=== PATIENT | male | born 1955 | race Caucasian/White ===

== ENCOUNTER → 2021-01-09 | Outpatient (CLI) | payer BC ==
[~2021-01-09] MED LIST: ZESTRIL5 MG PO
== END ==
LOC: KOH-I 11:36
DX: M54.5 Low back pain (principal); M51.36 Other intervertebral disc degeneration, lumbar region
CPT/HCPCS: 72100

== ENCOUNTER 2021-12-25 10:30 | Emergency (ER) | payer BC ==
[2021-12-25 11:27] LABS: HEMOGLOBIN 15.2 gm/dl (14.0-17.5); RED BLOOD COUNT 4.93 M/UL (4.20-5.50); WHITE BLOOD COUNT 5.7 K/UL (4.5-11.0)
[2021-12-25] MEDS ORDERED: CYCLOBENZAPRINE10 MG PO (13:06)
== END 2021-12-25 13:25 | disposition home or self-care (01) ==
LOC: ER1 10:30
PROVIDERS: Nurse Practitioner
DX: R07.89 Other chest pain (principal); I10 Essential (primary) hypertension
CPT/HCPCS: 70450; 71250; 72125; 80053; 81001; 82550; 82553; 84484; 85025; 93005; 99285

== ENCOUNTER → 2021-12-31 | Outpatient (CLI) | payer BC ==
[~2021-12-31] MED LIST changes: +CYCLOBENZAPRINE10 MG PO
== END ==
LOC: KOH-I 15:59
DX: J20.2 Acute bronchitis due to streptococcus (principal); R06.02 Shortness of breath; R06.2 Wheezing
CPT/HCPCS: 71046